=== PATIENT | male | born 1970 | race Caucasian/White ===

== ENCOUNTER → 2020-08-01 | Outpatient (CLI) | payer OTHER ==
[~2020-08-01] MED LIST: IBUPROFEN800 MG PO; LISINOPRIL10 MG PO; METFORMIN HCL500 MG PO; NORCO 7.5-3251 EACH PO
== END ==
LOC: OPSV 06:26
PROC: 3E013TZ Introduction of Destructive Agent into Subcutaneous Tissue, Percutaneous Approach (ICD-10-PCS; principal; 2020-08-01)
DX: M72.0 Palmar fascial fibromatosis [Dupuytren] (principal); Z79.84 Long term (current) use of oral hypoglycemic drugs; Z79.899 Other long term (current) drug therapy
CPT/HCPCS: J0775